=== PATIENT | female | born 1945 | race Caucasian/White ===

== ENCOUNTER → 2017-02-26 14:05 | Outpatient (CLI) | payer MEDICARE, BC | END | disposition home or self-care (01) | LOC: D.MAMMO 09:00 | DX: N60.01 Solitary cyst of right breast (principal) ==

== ENCOUNTER → 2017-08-13 10:03 | Outpatient (CLI) | payer MEDICARE, BC ==
--- NOTE | ~2017-08-13 | EC ---
PATIENT:MAN CAMARILLO DATE OF SERVICE: 08/13/17 SEX: F MEDICAL RECORD: [id number] DATE OF : 49 LOCATION:[facility] INCLUDES THE [facility] AGE OF PATIENT: 72 ADMISSION DATE: 08/13/17 REFERRING PHYSICIAN: INTERPRETING PHYSICIAN: YOUNG WASHINGTON MD ECHOCARDIOGRAM REPORT ECHO CHARGES Date: CLINICAL DIAGNOSIS: ECHOCARDIOGRAPHIC MEASUREMENTS (adult normal given) AC root (d.<3.7cm) cm LV Septum d (<1.2 cm> cm Valve Excursion cm LV Septum (systole) cm Left Atria (s.<4.0cm> cm LVPW d(<1.2cm) cm RV (d.<2.3cm) cm LVPW (sytole) cm LV diastole(<5.6CM) cm MV E-F(>70mm/sec) cm LV systole cm LVOT Diameter cm MV exc.(>10mm) cm Est.ejection fraction (50-75%) % DOPPLER: LVIT cm/sec A cm/sec E cm/sec LA cm/sec RVSP mmHg LVOT cm/sec AOP1/2T m/s Asc. Ao cm/sec RVOT cm/sec RA cm/sec PA cm/sec AV Gradient Peak mmHg AV Mean mmHg AV Area cm MV Gradient Peak mmHg MV Mean mmHg MV Area cm COMMENTS: Room Service Manager: Meat Department Manager: LE# Pericardial Effusion DATE OF SERVICE: PROCEDURE: Transthoracic echocardiogram. FINDINGS: 1. Left ventricle is difficult to visualize, but grossly normal in its function. Evidence of mild left ventricular hypertrophy. Ejection fraction is 50% to 55%. There is diastolic dysfunction. 2. Aortic valve is normal. 3. The mitral valve is normal. ECHOCARDIOGRAM REPORT [id number] MAN CAMARILLO 4. The tricuspid valve is normal. 5. The pericardium is normal. 6. The right ventricle and right atrium are normal size, shape, structure and function. 7. The pulmonic valve, although not well visualized by Doppler is normal. IMPRESSION: The patient has evidence of mild left ventricular hypertrophy and hypertensive heart disease, otherwise normal echocardiogram. TRANSINT:[id number] Voice Confirmation ID: [id number] DOCUMENT ID: [id number] YOUNG WASHINGTON MD at 1029 CC: [id number] DICTATION DATE: 08/13/17 1120 UKE OPERATOR: 08/13/17 1237 DEP CLI 08/13/17 [place] [id number] [place] [address]
[~2017-08-13 10:03] MED LIST: B-12 DOTS500 MCG PO; BAYER CHEWABLE81 MG PO; CO Q-10100 MG PO; ESTRACE1 MG PO; LIPITOR20 MG PO; MAGNESIUM OXID250 MG PO; OMEPRAZOLE20 M1 PO; ZYRTEC10 MG PO
[2017-09-04 08:03] VITALS: BMI 31.3
== END | disposition home or self-care (01) ==
LOC: D.ECHO 09:00
DX: R07.9 Chest pain, unspecified (principal); E78.5 Hyperlipidemia, unspecified; R00.2 Palpitations

== ENCOUNTER 2017-09-04 06:59 | Outpatient (CLI) | payer MEDICARE, BC ==
[~2017-09-04] VITALS: Ht 167.6 cm; Wt 88.2 kg
--- NOTE | ~2017-09-04 | HEMODYNAMI ---
PATIENT:MAN CAMARILLO MEDICAL RECORD: [id number] : 49 LOCATION:D.CAT ADMISSION DATE: 09/04/17 Generatedon:09/04/201710:46 Patient name: MAN CAMARILLO Patient #: [id number] SSN: : 1945 Date of study: 09/04/2017 Page: Of Hemodynamic Procedure Report Patient Data Patient Demographics Procedure consent was obtained First Name: MAN Gender: Female Last Name: RABIA : 1945 [facility] Initial: VENITA Age: 72 year(s) Patient #: [id number] Race: Unknown Additional ID: [id number] Contact details [address]: [address] [place] [address] COURT State: [place] City: [place] Zip code: [address] Past Medical History Allergies Allergen Reaction Date Comments Reported Other allergy 09/04/2017 Codeine Admission Admission Data Admission Date: 09/04/2017 Admission Time: 6:59 Admit Source: Other Lab Results Lab Result Date: 09/04/2017 Lab Result Time: 0:00 Biochemistry Name Units Result Min Max BUN mg/dl 14 --(--*-)-- 7 18 Creatinine mg/dl 0.8 --(-*--)-- 0.6 1.3 CBC Name Units Result Min Max Hemoglobin g/dl 13.5 --(*---)-- 13.5 17.5 Procedure Procedure Types Cath Procedure Diagnostic Procedure [facility] w/Coron[facility] Procedure Description Procedure Date Procedure Date: 09/04/2017 Procedure Start Time: 10:34 Procedure End Time: 10:45 Procedure Staff Name Function Kevin Gamez MD Performing Physician Keya Smith RT Monitor García Ellis RT Scrub Oswaldo Ceja RN Nurse Procedure Data Cath Procedure Fluoroscopy Diagnostic fluoroscopy Total fluoroscopy Time: 1.2 time: 1.2 min min Diagnostic fluoroscopy Total fluoroscopy dose: 276 dose: 276 mGy mGy Contrast Material Contrast Material Type Amount (ml) Isovue 300 33 Entry Location Entry Primary Successful Side Size Upsize Upsize Entry Closure Succes sful Closure Location (Fr) 1 (Fr) 2 (Fr) Remarks Device Remarks Femoral Right 5 Fr Exoseal artery Estimated blood loss: 5 ml Diagnostic catheters Device Type Used For End Catheter Placement MULTIPACK JL 4.0 5Fr Left Coronary catheter Angiography MULTIPACK 3DRC 5Fr Right Coronary catheter Angiography MULTIPACK Pigtail 5 Fr LV Angiography catheter Procedure Complications No complications Procedure Medications Medication Administration Route Dosage Oxygen etCO2 Nasal cannula 2 l/min Heparin Flush Bag added to field 2 bags (1000units/500ml NS) 0.9% NaCl I.V. 100 ml/hr Fentanyl I.V. 50 mcg Versed I.V. 1 mg Fentanyl I.V. 50 mcg Versed I.V. 1 mg Hemodynamics Rest HGB: 13.5 (g/dl) Heart Rate: 66 (bpm) Pressure Samples Time Site Value (mmHg) Purpose Heart Use Rate(bpm) 10:42 LV 144/-18,13 EDP 86 Gradients Valve Time Site Site Mean SEP/DFP Peak To Heart Use 1 2 (mmHg) (sec/min) Peak Rate (mmHg) (bpm) Aortic 10:42 LV AO 86 Snapshots Pre Cath Intra NCS Post Cath Vital Signs Time Heart Resp SPO2 etCO2 NIBP (mmHg) Rhythm Pain Sedation Rate (ipm) (%) (mmHg) Status Level (bpm) 10:22:40 79 17 98 0 144/64(118) NSR 0 (11) 10(A) , No pain 10:27:06 71 19 99 29 154/62(112) NSR 0 (11) 10(A) , No pain 10:31:26 81 19 97 24.6 141/63(86) NSR 0 (11) 10(A) , No pain 10:35:38 85 16 96 28.3 141/64(104) NSR 0 (11) 10(A) , No pain 10:39:46 89 18 96 30.5 146/71(100) NSR 0 (11) 10(A) , No pain 10:43:54 92 16 96 30.5 150/69(109) NSR 0 (11) 10(A) , No pain 10:45:06 83 15 96 31.3 155/61(98) NSR 0 (11) 10(A) , No pain Medications Time Medication Route Dose Verified Delivered Reason Notes Effe ctiveness by by 10:24:52 Oxygen etCO2 2 Kevin Oswaldo Per Nasal l/min Franco Ceja RN physician cannula 10:25:02 Heparin Flush added 2 Kevin Oswaldo used for Bag to bags Franco Ceja RN procedure (1000units/500ml field NS) 10:25:11 0.9% NaCl I.V. 100 Kevin Oswaldo Per ml/hr Franco Ceja RN physician 10:29:39 Fentanyl I.V. 50 Kevin Oswaldo for mcg Franco Ceja RN sedation 10:29:45 Versed I.V. 1 mg Kevin Oswaldo for Franco Ceja RN sedation 10:32:54 Fentanyl I.V. 50 Kevin Oswaldo for mcg Franco Ceja RN sedation 10:33:00 Versed I.V. 1 mg Kevin Oswaldo for Franco Ceja RN sedation Procedure Log Time Note 9:55:25 Oswaldo Ceja RN sent for patient. Start room use. 10:05:08 Informed consent obtained and on chart 10:05:11 Admit Source: Other 10:05:24 Diagnostic Cath status Elective 10:05:30 Time tracking: Regular hours (M-F 7:00 - 5:00) 10:05:33 Plan of Care:Hemodynamics will remain stable., Cardiac rhythm will remain stable., Comfort level will be maintained., Respiratory function will remain adequate., Patient/ family verbilizes understanding of procedure., Procedure tolerated without complication., Recovers from procedure without complications.. 10:05:44 H&P Date Dictated: 09/01/2017 Within 30 days and on chart., H&P Addendum completed by physician on day of procedure. (MUST COMPLETE FOR ALL OUTPATIENTS). 10:07:27 Patient allergic to Other allergyCodeine 10:10:33 Patient received from Pre/Post Procedure Room to CCL 2 Alert and oriented. Tansferred to table in Supine position. 10:10:34 Warm blankets applied, and kasie hugger turned on for patient comfort. 10:10:35 Correct patient and procedure confirmed by team. 10:10:35 ECG and BP/O2 sat monitors applied to patient. 10:21:28 Vital chart was started 10:21:29 Baseline sample Acquired. 10::34 Rhythm: sinus rhythm 10:21:35 Full Disclosure recording started 10::36 Pre-procedure instructions explained to patient. 10:21:36 Pre-op teaching completed and patient verbalized understanding. 10:21:38 Family in patients room. 10::40 Patient NPO since Midnight. 10::42 Is the patient allergic to Iodine/contrast media? No. 10:21:43 Was the patient premedicated? No 10:21:43 Is patient on blood thinner?Yes 10::45 ACC The patient was administered the following blood thiners within the last 24 hours: ACCPlavix 10:21:47 Patient diabetic? No. 10:21:51 Previous problem with sedation/anesthesia? No ? 10::52 Snore? Yes 10::53 Sleep apnea? No 10::54 Deviated septum? No 10::54 Opens mouth fully? Yes 10::55 Sticks out tongue? Yes 10:21:57 Airway obstruction? No ? 10:24:44 Dentures? Yes partials in tight 10:24:49 Pre procedure: right dorsailis pedis pulse 2+ Normal; easily identifiable; not easily obliterated 10:24:51 Pre procedure: left dorsailis pedis pulse 2+ Normal; easily identifiable; not easily obliterated 10:24:52 Oxygen 2 l/min etCO2 Nasal cannula was administered by Oswaldo Ceja RN; Per physician; 10:24:53 Patient pain scale 0/10 ?. 10:25:00 IV patent on arrival in left hand with 0.9% NaCl at [facility]. 10:25:02 Heparin Flush Bag (1000units/500ml NS) 2 bags added to field was administered by Oswaldo Ceja RN; used for procedure; 10:25:02 Lab results completed and on chart. 10:25:07 Right groin area was prepped with chlora-prep and draped in sterile fashion 10:25:08 Alarms reviewed by R. N. 10:25:09 Sharps counted by scrub and verified by R.N. 10:25:11 0.9% NaCl 100 ml/hr I.V. was administered by Oswaldo Ceja RN; Per physician; 10:25:11 Physician arrived 10:25:12 --------ALL STOP TIME OUT------ 10:25:12 Final Timeout: patient, procedure, and site verified with staff and physician. All members of the team are in agreement. 10:25:14 Right groin site verified by team. 10:25:16 Physical assessment completed. ASA score P 2 - A patient with mild systemic disease as per Kevin Gamez MD. 10:25:19 Sedation plan: IV Moderate Sedation Medication:Versed, Fentanyl 10:25:24 Use device set Femoral Dx 10:25:25 ACIST Syringe (12116) opened to sterile field. 10:25:26 Bag Decanter (2002S) opened to sterile field. 10:25:26 Medline Cath Pack ([id number]) opened to sterile field. 10:25:27 DIAGNOSTIC WIRE .035 260cm J wire (941250) opened to sterile field. 10:25:28 ACIST Hand Control (89959) opened to sterile field. 10:25:28 ACIST Manifold (73454) opened to sterile field. 10:25:29 DIAGNOSTIC Multipack 5Fr catheter set ([id number]) opened to sterile field. 10:25:30 Tegaderm 4 x 4 (1626W) opened to sterile field. 10:25:31 MICROPUNCTURE 4FR Cook (O58123) opened to sterile field. 10:25:32 SHEATH Prelude 5Fr 0.035 (TYF-4U-69-035) opened to sterile field. 10:27:40 Lab Result : BUN 14 mg/dl 10:27:40 Lab Result : Creatinine 0.8 mg/dl 10:27:40 Lab Result : Hemoglobin 13.5 g/dl 10:29:39 Fentanyl 50 mcg I.V. was administered by Oswaldo Ceja RN; for sedation; 10:29:45 Versed 1 mg I.V. was administered by Oswaldo Ceja RN; for sedation; 10:32:54 Fentanyl 50 mcg I.V. was administered by Oswaldo Ceja RN; for sedation; 10:33:00 Versed 1 mg I.V. was administered by Oswaldo Ceja RN; for sedation; 10:34:16 Procedure started. 10:34:19 Local anesthetic to right femoral artery with Lidocaine 2% by Kevin Gamez MD.INITIAL ACCESS ONLY 10:34:21 Access obtained with 4Fr micropunture. 10:34:27 A 5 Fr sheath was inserted into the Right Femoral artery 10:36:36 Zero performed for pressure channel P1 10:36:40 Zero performed for pressure channel P1 10:36:46 Zero performed for pressure channel P1 10:37:04 Zero performed for pressure channel P1 10:37:08 Zero performed for pressure channel P1 10:37:13 Zero performed for pressure channel P1 10:37:20 Zero performed for pressure channel P1 10:37:29 Zero performed for pressure channel P1 10:37:43 A MULTIPACK JL 4.0 5Fr catheter was advanced over the wire and used for Left Coronary Angiography. 10:38:07 LCA angiography performed. 10:38:10 Injector settings: Ml/sec: 3, Volume: 6, 10:38:57 Catheter removed. 10:39:01 A MULTIPACK 3DRC 5Fr catheter was advanced over the wire and used for Right Coronary Angiography. 10:40:20 RCA angiography performed. 10:40:31 Catheter removed. 10:40:38 A MULTIPACK Pigtail 5 Fr catheter was advanced over the wire and used for LV Angiography. 10:42:21 LV hemodynamics recorded. 10:42:36 LV gram done using JARRELL 10:42:38 Injector settings: Ml/sec: 5, Volume: 15, 10:42:49 EF : 75 % 10:42:52 Catheter removed. 10:43:26 EXOSEAL 5Fr (EX500) opened to sterile field. 10:43:56 Sheath removed intact; hemostasis achieved with Exoseal to the Right Femoral artery. 10:43:58 Procedure ended.(Physican Out) 10:44:13 Fluoroscopy time 01.20 minutes. 10:44:17 Flurop Dose total: 276 10:44:17 Fluoroscopy dose: 276 mGy 10:44:42 Contrast amount:Isovue 300 33ml. 10:44:43 Sharps counted by scrub and verified by R.N. 10:44:46 Insertion/operative site no bleeding no hematoma. 10:44:48 Post-op/insertion site Right Femoral artery dressed using a 4 x 4 and Tegaderm. 10:44:50 Post right femoral artery:stable 10:44:51 Post Procedure Pulses reassessed and unchanged 10:44:53 Post procedure rhythm: unchanged. 10:44:56 Estimated blood loss: 5 ml 10:44:57 Post procedure instruction explained to patient.Patient verbalizes understanding. 10:44:57 Patient needs reinforcement of post procedure teaching. 10:45:09 Procedure and supply charges have been captured, reviewed, submitted and are correct. 10:45:13 Procedure Complication : No complications 10:45:15 Vital chart was stopped 10:45:15 See physician's report for complete and final results. 10:45:18 Report given to Pre/Post Procedure Room. 10:45:20 Patient transfered to Pre/Post Procedure Room with Stretcher. 10:45:22 Procedure ended. 10:45:22 Full Disclosure recording stopped 10:45:25 End room use (Document Last) Device Usage Item Name Manufacture Quantity Catalog Number Hospital Part Current M inimal Lot# / Charge Number Stock Stock Serial# Code ACIST Syringe Acist 1 39286 845116 178118 656833 2 0 (48206) [employer] Bag Decanter Microtek 1 2001S 292579 49193 379016 5 (2001S) Medical Inc. Medline Cath Cardinal 1 [id number] 888969 64213 197793 5 One Codex ([id number]) DIAGNOSTIC WIRE [facility] Gilberto 1 [id number] 808138 042456 847411 3 0 .035 260cm J wire (800386) ACIST Hand Acist 1 32707 932780 450305 404064 5 Control (12618) [employer] ACIST Manifold Acist 1 39114 036634 520494 666871 5 (16043) [employer] Inc DIAGNOSTIC Cardinal 1 [id number] 484967 88823 427232 3 0 Multipack 5Fr Health catheter set (QH4606) Tegaderm 4 x 4 3M 1 1626W 617081 801495 157107 5 (1626W) MICROPUNCTURE Cook Medical 1 [id number] 558716 749916 022940 5 4FR Cook (S19688) SHEATH Prelude Merit 1 [id number]-5Z-95-035 202344 524904 727388 5 5Fr 0.035 Medical (PFO-2V-59-035) MULTIPACK JL Cardinal 1 899396 5 4.0 5Fr Health catheter MULTIPACK 3DRC Cardinal 1 [id number] 5 5Fr catheter Health MULTIPACK Cardinal 1 880080 5 Pigtail 5 Fr Health catheter EXOSEAL 5Fr Cardinal 1 EX500 041301 702019 235633 1 0 (EX500) Health Signature Audit Lena Stage Time Signature Unsigned Intra-Procedure 09/04/2017 Keya Smith 10:46:05 AM RT(R) Signatures Monitor : Keya Smith RT Signature : Date : Time : [place] [id number] [place] [address]
[2017-09-04] MEDS ORDERED: LIPITOR20 MG PO (07:53)
[2017-09-04] MEDS ORDERED: ESTRACE1 MG PO (07:53)
[2017-09-04] MEDS ORDERED: OMEPRAZOLE20 M1 PO (07:54)
[2017-09-04] MEDS ORDERED: MAGNESIUM OXID250 MG PO (07:54)
[2017-09-04] MEDS ORDERED: CO Q-10100 MG PO (07:54)
[2017-09-04] MEDS ORDERED: BAYER CHEWABLE81 MG PO (07:55)
[2017-09-04] MEDS ORDERED: ZYRTEC10 MG PO (07:55)
[2017-09-04] MEDS ORDERED: B-12 DOTS500 MCG PO (07:56)
[2017-09-04 08:03] VITALS: BP 157/58; Ht 167.6 cm; Wt 88.2 kg
[2017-09-04 08:12] LABS: BASOPHILS 0.8 % (0-2); EOSINOPHILS 2.3 % (0-7); HEMATOCRIT 40.1 % (36.0-48.0); HEMOGLOBIN 13.5 g/dL (12-16); LYMPHOCYTES 43.6 % (15-50); MCH 28.7 pg (26.0-34.0); MCHC 33.7 g/dL (31.0-37.0); MCV 85.3 fL (80.0-100.0); MEAN PLATELET VOLUME 9.9 fL (7.4-10.4); MONOCYTES 9.5 % (2-11); NEUTROPHILS 43.8 % (40-80); PLATELET COUNT 226 10x3/uL (130-400); RDW 12.8 % (11.5-14.5); WBC 5.3 10x3/uL (4.8-10.8)
[2017-09-04 08:22] LABS: CALC OSMOLALITY 281 mosm/kg (275-300); CALCIUM 9.4 mg/dL (8.5-10.1); CARBON DIOXIDE 27.8 mmol/L (21.0-32.0); CHLORIDE - SERUM 106 mmol/L (98-107); CREATININE - SERUM 0.8 mg/dL (0.6-1.3); GLUCOSE 105 mg/dL (74-106); POTASSIUM - SERUM 4.2 mmol/L (3.5-5.1); SODIUM 141 mmol/L (136-145); UREA NITROGEN 14 mg/dL (7-18); eGFR NON AFRICAN AMERICAN 75 mL/min (90-120)
== END 2017-09-04 13:05 | disposition home or self-care (01) ==
LOC: D.CATH 06:59
PROVIDERS: Internal Medicine Cardiovascular Disease
DX: I25.10 Atherosclerotic heart disease of native coronary artery without angina pectoris (principal); Z01.812 Encounter for preprocedural laboratory examination

== ENCOUNTER 2018-09-22 10:00 | Outpatient (CLI) | payer MEDICARE, BC ==
[2017-09-04 08:03] VITALS: BMI 31.3
== END 2018-09-22 11:00 | disposition home or self-care (01) ==
LOC: D.MAMMO 10:00
PROVIDERS: ATTEND Family Medicine
DX: Z12.31 Encounter for screening mammogram for malignant neoplasm of breast (principal)

== ENCOUNTER → 2019-04-02 08:43 | Outpatient (CLI) | payer MEDICARE, BC ==
[2017-09-04 08:03] VITALS: BMI 31.3
--- NOTE | 2019-04-05 08:28 | EC ---
PATIENT:MAN CAMARILLO DATE OF SERVICE: 04/02/19 SEX: F MEDICAL RECORD: [id number] DATE OF : [birth year] LOCATION:D.[facility] AGE OF PATIENT: 74 ADMISSION DATE: 04/02/19 REFERRING PHYSICIAN: INTERPRETING PHYSICIAN: SURINDER PUENTE MD ECHOCARDIOGRAM REPORT ECHO CHARGES 4 ECHO COMPLETE Date: 04/02/19 CLINICAL DIAGNOSIS: CP/MURMUR H/O HTN ECHOCARDIOGRAPHIC MEASUREMENTS (adult normal given) AC root (d.<3.7cm) 3.2 cm LV Septum d (<1.2 cm> 1.5 cm Valve Excursion 2.0 cm LV Septum (systole) 2.1 cm Left Atria (s.<4.0cm> 4.0 cm LVPW d(<1.2cm) 1.4 cm RV (d.<2.3cm) 2.7 cm LVPW (sytole) 2.1 cm LV diastole(<5.6CM) 5.7 cm MV E-F(>70mm/sec) cm LV systole 3.7 cm LVOT Diameter 2.1 cm MV exc.(>10mm) cm Est.ejection fraction (50-75%) % DOPPLER: LVIT cm/sec A 104 cm/sec E 73.0 cm/sec LA cm/sec RVSP 32.2 mmHg LVOT 105 cm/sec AOP1/2T m/s Asc. Ao 122 cm/sec RVOT 66.0 cm/sec RA cm/sec PA 100 cm/sec AV Gradient Peak 6.0 mmHg AV Mean 3.5 mmHg AV Area 2.4 cm MV Gradient Peak 4.6 mmHg MV Mean 1.6 mmHg MV Area cm COMMENTS: OP - HC Flatwork Washer: Juanis PATELOE [employer] Tire Technician: 3 Dr. Youngblood TAPE# PACS Pericardial Effusion N DATE OF SERVICE: 04/02/2019 Adequate 2D echo, color flow, spectral Doppler, and M-mode. LVH is present. LV internal dimension is normal. Wall motion is normal. EF is greater than or equal to 55%. Aortic valve is sclerotic. No evidence of stenosis by Doppler interrogation. The left atrium is normal at 4.0 cm. Mitral valve shows no prolapse. Trace MR. Right-sided chambers grossly normal. Trace TR. ECHOCARDIOGRAM REPORT [id number] MAN CAMARILLO TRANSINT:[id number] Voice Confirmation ID: [id number] DOCUMENT ID: [id number] SURINDER PUENTE MD at 0828 CC: [id number] DICTATION DATE: 04/02/[address] SPECIALIST: 04/02/19 2309 DEP CLI 04/02/19 [place] [id number] [place] [id number]
== END | disposition home or self-care (01) ==
LOC: D.HCCECHO 04-01 11:30
PROVIDERS: ATTEND Internal Medicine Interventional Cardiology
DX: I25.10 Atherosclerotic heart disease of native coronary artery without angina pectoris (principal)

== ENCOUNTER 2019-10-21 08:00 | Outpatient (CLI) | payer MEDICARE, BC ==
[2017-09-04 08:03] VITALS: BMI 31.3
== END 2019-10-21 15:51 | disposition home or self-care (01) ==
LOC: D.MAMMO 08:00
PROVIDERS: ATTEND Family Medicine
DX: Z12.31 Encounter for screening mammogram for malignant neoplasm of breast (principal)

== ENCOUNTER → 2020-05-11 08:03 | Outpatient (CLI) | payer MEDICARE, BC ==
[2017-09-04 08:03] VITALS: BMI 31.3
--- NOTE | 2020-05-15 08:50 | EC ---
PATIENT:MAN CAMARILLO DATE OF SERVICE: 05/11/20 SEX: F MEDICAL RECORD: [id number] DATE OF : [birth year] LOCATION:D.[facility] AGE OF PATIENT: 75 ADMISSION DATE: 05/11/20 REFERRING PHYSICIAN: INTERPRETING PHYSICIAN: SURINDER PUENTE MD ECHOCARDIOGRAM REPORT ECHO CHARGES 4 ECHO COMPLETE Date: 05/11/20 CLINICAL DIAGNOSIS: HX OF CAD/HTN ASSESS EF AND VALVES ECHOCARDIOGRAPHIC MEASUREMENTS (adult normal given) AC root (d.<3.7cm) 3.0 cm LV Septum d (<1.2 cm> 1.5 cm Valve Excursion 1.5 cm LV Septum (systole) 1.8 cm Left Atria (s.<4.0cm> 3.6 cm LVPW d(<1.2cm) 1.3 cm RV (d.<2.3cm) 3.4 cm LVPW (sytole) 1.8 cm LV diastole(<5.6CM) 5.1 cm MV E-F(>70mm/sec) cm LV systole 3.1 cm LVOT Diameter 2.0 cm MV exc.(>10mm) 1.5 cm Est.ejection fraction (50-75%) % DOPPLER: LVIT cm/sec A 81.0 cm/sec E 74.0 cm/sec LA cm/sec RVSP 31 mmHg LVOT 101 cm/sec AOP1/2T m/s Asc. Ao 133 cm/sec RVOT 92 cm/sec RA cm/sec PA 110 cm/sec AV Gradient Peak 7.12 mmHg AV Mean 3.17 mmHg AV Area 2.2 cm MV Gradient Peak 3.46 mmHg MV Mean 1.43 mmHg MV Area cm COMMENTS: Slubber Operator: 2 MARCUS ALAMO Deicer Repairer Electric: 3 Dr. Youngblood TAPE# PACS Pericardial Effusion N DATE OF SERVICE: Adequate 2D, color flow imaging, spectral Doppler, and M-Mode. FINDINGS: LVH is present. LV internal dimension is normal. Wall motion is normal. EF is greater than or equal to 55%. Aortic valve is tricuspid. No evidence of stenosis by Doppler interrogation. Left atrium is normal at 3.6 cm. Mitral valve shows no prolapse. Trace MR. Right side is grossly normal. Trace TR. ECHOCARDIOGRAM REPORT [id number] MAN CAMARILLO TRANSINT:[id number] Voice Confirmation ID: [id number] DOCUMENT ID: [id number] SURINDER PUENTE MD at 0850 CC: [id number] DICTATION DATE: 05/11/20 1536 SUBSURFACE AUGMENTEE OPERATOR: 05/11/20 1748 DEP CLI 05/11/20 [place] [id number] [place] [id number]
== END | disposition home or self-care (01) ==
LOC: D.HCCECHO 04-20 08:30
PROVIDERS: ATTEND Internal Medicine Interventional Cardiology
DX: I10 Essential (primary) hypertension (principal)